=== PATIENT | male | born 1965 ===

== ENCOUNTER → 2024-07-28 | Outpatient (CLI) | payer OTHER | END | disposition home or self-care (01) | LOC: RAD 09:12 | PROVIDERS: ATTEND Internal Medicine | DX: I10 Essential (primary) hypertension (principal); E03.9 Hypothyroidism, unspecified; E78.9 Disorder of lipoprotein metabolism, unspecified; E55.9 Vitamin D deficiency, unspecified; E11.51 Type 2 diabetes mellitus with diabetic peripheral angiopathy without gangrene; E11.9 Type 2 diabetes mellitus without complications; N41.0 Acute prostatitis; Z01.810 Encounter for preprocedural cardiovascular examination ==